=== PATIENT | female | born 1945 | race Caucasian/White ===

== ENCOUNTER 2019-03-21 08:47 | Emergency (ER) | payer MEDICARE, BC ==
[~2019-03-21] VITALS: Ht 167.6 cm; Wt 79.5 kg
[2019-03-21] MEDS ORDERED: ibuprofen tablet 400 MG TABLET PO ONE (09:15)
--- NOTE | 2019-03-21 09:15 | NUR ---
ICE PACK TO LEFT KNEE SWOLLEN WITH ABRASION, ICE TO RIGHT WRI
--- NOTE | 2019-03-21 09:16 | NUR ---
LEFT KNEE NO DEFORMITY, ICE PACK TO RIGHT WRIST TENDER NO SWELLING, NO DEFORMITY NOTED, ACHING LEFT FACE: NO DEFORMITY NOTED, ABRASION TO CHIN/UPPER LIP
[2019-03-21 10:40] VITALS: BP 144/65
== END 2019-03-21 12:17 | disposition home or self-care (01) ==
LOC: ER 08:47
DX: S01.511A Laceration without foreign body of lip, initial encounter (principal); S80.212A Abrasion, left knee, initial encounter; I10 Essential (primary) hypertension; E11.9 Type 2 diabetes mellitus without complications; Z87.891 Personal history of nicotine dependence; W18.39XA Other fall on same level, initial encounter; Y93.01 Activity, walking, marching and hiking; Y92.481 Parking lot as the place of occurrence of the external cause; Y99.8 Other external cause status
CPT/HCPCS: 29505; 73110; 73564; 99284